=== PATIENT | female | born 1955 | race Caucasian/White ===

== ENCOUNTER → 2018-11-14 | Outpatient (CLI) | payer BC, OTHER ==
[~2018-11-14] MED LIST: ACHD5005 PO; AMOX-355 PO; LACT1CAP64 PO; MELO-195 PO; MULT-608 PO; OMEG-12 PO; OMEP40CA36 PO; OXYC-12 PO; PNT40TEC PO
--- NOTE | 2018-11-14 13:39 | Diagnostic Imaging Report ---
INDICATION: Routine screening. COMPARISON: 07/21/2015. TECHNIQUE: 2D and 3D bilateral screening mammography was performed with CAD. FINDINGS: Scattered fibroglandular densities are identified bilaterally. The parenchymal pattern is stable. The circumscribed nodular density in the medial right breast is stable. No spiculated mass or malignant appearing microcalcifications are seen. The axillae are unremarkable. IMPRESSION: No mammographic features suspicious for malignancy are identified. ACR BI-RADS Category 2: Benign findings. Result letter will be mailed to the patient. Note: At least 10% of breast cancer is not imaged by mammography. Dictated by: Dictated on workstation # [id number]
== END ==
LOC: RAD 09:42
PROVIDERS: ATTEND Family Medicine
DX: Z12.31 Encounter for screening mammogram for malignant neoplasm of breast (principal)
CPT/HCPCS: 77067

== ENCOUNTER → 2020-12-08 | Outpatient (CLI) | payer BC, OTHER ==
--- NOTE | 2020-12-08 13:48 | Diagnostic Imaging Report ---
INDICATION: Routine screening. COMPARISON: 11/14/2018 and 07/21/2015. TECHNIQUE: 2D and 3D bilateral screening mammography was performed with CAD. FINDINGS: Scattered fibroglandular densities are identified bilaterally. The parenchymal pattern is stable. The benign nodule in the medial right breast is stable. No spiculated mass or malignant-appearing microcalcifications are seen. The axillae are unremarkable. IMPRESSION: No mammographic features suspicious for malignancy are identified. ACR BI-RADS Category 2: Benign findings. Result letter will be mailed to the patient. Note: At least 10% of breast cancer is not imaged by mammography. Dictated by: Dictated on workstation # [id number]
== END ==
LOC: RAD 08:30
PROVIDERS: ATTEND Family Medicine
DX: Z12.31 Encounter for screening mammogram for malignant neoplasm of breast (principal)
CPT/HCPCS: 77063; 77067

== ENCOUNTER 2021-09-16 20:12 | Emergency (ER) | payer MEDICARE, OTHER ==
[~2021-09-16] VITALS: Ht 165.1 cm; Wt 72.6 kg
[2021-09-16] MEDS ORDERED: HYDROcodone/APAP 5 MG/325 MG (LORTAB) TAB PO ONE (20:30)
--- NOTE | 2021-09-16 20:30 | ED Upper Extremity ---
General Stated Complaint: FALL, RIGHT SHOULDER PAIN Source: patient History of Present Illness Date Seen by Provider: September 16, 2021 Time Seen by Provider: 20:28 Initial Comments Patient is a 66-year-old female who presents to the ED with right shoulder pain. Fell about 30 minutes ago. She states she was taking out the trash when she slipped on some loose concrete landing directly on her right shoulder. Had immediate pain. Pain is relieved when she keeps her arm still with any type of movement she noticed significant pain. No obvious bone deformity swelling bruising. Denies hitting her head loss of conscious, neck pain, chest pain. Denies taking thing for pain. She did drink a few alcoholic beverages right before arrival. Allergies and Home Medications Allergies Coded Allergies: No Known Drug Allergies (Unverified , 09/17/12) Patient Home Medication List Home Medication List Reviewed: Yes Amoxicillin/Clavulanate K (Augmentin 500-125 Tablet) 1 Each Tablet, 1 EACH PO BID, (Reported) Entered as Reported by: SIRIA RODRIGUEZ on 08/22/13 1005 Hydrocodone Bit/Acetaminophen (Lortab 5 Mg Tablet) 1 Each Tablet, 1-2 EACH PO Q4H PRN for PAIN, (Reported) Entered as Reported by: SIRIA RODRIGUEZ on 08/22/13 1005 Hydrocodone/Acetaminophen (Hydrocodone-Acetamin 5-325 mg) 5 Mg-325 Mg Tablet, 1 TAB PO Q4H PRN for PAIN-MODERATE (5-7) Prescribed by: BRITTON TRIVEDI on 09/16/214 Lactobacillus Combo No.11 (Probiotic) 1 Each Cap.sprink, 1 TAB PO DAILY, (Reported) Entered as Reported by: OSCAR BYRD on 08/15/13 1529 Meloxicam (Meloxicam) 15 Mg Tablet, 15 MG PO DAILY, (Reported) Entered as Reported by: OSCAR BYRD on 08/15/13 1529 Multivitamins (Multiple Vitamin) 1 Tab Tablet, 1 TAB PO DAILY, (Reported) Entered as Reported by: VITOR CRUZ on 09/17/12 1247 [place]-3/Dha/Epa/Fish Oil (Fish Oil 1,000 Mg Ec Softgel) 1 Each Capsule.dr, 1,000 MG PO DAILY, (Reported) Entered as Reported by: OSCAR BYRD on 08/15/131528 Pantoprazole Sodium (Protonix) 40 Mg Tablet.dr, 40 MG PO DAILY, (Reported) Entered as Reported by: OSCAR BYRD on 08/15/131528 Review of Systems Constitutional: No chills, No diaphoresis, No malaise, No weakness EENTM: No hearing loss, No blurred vision, No double vision Respiratory: No cough, No dyspnea on exertion, No orthopnea, No short of breath, No wheezing Cardiovascular: No chest pain Gastrointestinal: No abdominal pain, No diarrhea, No nausea, No vomiting Genitourinary: No decreased output, No discharge Musculoskeletal: No back pain; joint pain, muscle pain Skin: No change in color, No change in hair/nails All Other Systems Reviewed Negative Unless Noted: Yes Past Rktjiag-Pwrecr-Jrvhzh Hx Past Medical History Reproductive Disorders: No Arthritis Physical Exam Vital Signs Vital Signs - First Documented 09/16/21 09/16/21 20:22 21:26 Temp 36.6 Pulse 75 Resp 19 B/P (MAP) 177/78 (111) Pulse Ox 98 O2 Delivery Room Air Capillary Refill : Height, Weight, BMI Height: 5'5.00" Weight: 175lbs. oz. 79.439264lw; BMI Method:Stated General Appearance: WD/WN, no apparent distress HEENT: PERRL/EOMI, normal ENT inspection, TMs normal, pharynx normal Neck: non-tender, full range of motion, supple, normal inspection Cardiovascular: regular rate, rhythm, no edema, no gallop, no JVD Respiratory: chest non-tender, lungs clear, normal breath sounds Gastrointestinal: normal bowel sounds, non tender, soft, no organomegaly Back: normal inspection, no CVA tenderness, no vertebral tenderness Shoulder: bone tenderness (Right anterior shoulder tenderness. Limited passive range of motion of. 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 Patient airway maintained patent. No evidence of respiratory distress. Successful reduction Re-examination Time: 21:41 (Patient alert and orient x3. No concerns. Pain improved.) Splinting and Joint Reduction : Location: right shoulder Pre-Proc Neuro Vasc Exam: normal Post-Proc Neuro Vasc Exam: normal Joint Reduction Site: shoulder (R) Reduction Attempts: 1 Pre-Procedure NV Exam: Yes post joint reduction film: joint reduced Progress Patient was placed in a shoulder immobilizer Neri wrap: No Immobilizers: Large Shoulder Progress/Results/Core Measures Results/Orders My Orders Orders - SARAI REY Hydrocodone/Apap 5/325 Tablet (Lortab 5 (09/16/21 20:30) Shoulder, Right, 2 Views (09/16/21 ) Etomidate Injection (Amidate Injection) (09/16/21 21:15) Hydrocodone/Apap 5/325 Tablet (Lortab 5 (09/16/21 20:34) Rx-Hydrocodone/Apap 5-325 Mg (Rx-Vicodin (09/16/21 21:45) Fentanyl Inj (Sublimaze Injection) (09/16/21 21:42) Medications Given in ED Current Medications Medications Dose Ordered Sig/Eri Route Start Time Stop Time Status Last Admin Dose Admin Acetaminophen/ Hydrocodone Bitart 1 ea ONCE ONCE PO 09/16/21 20:30 09/16/21 21:18 DC 09/16/21 20:35 1 EA Acetaminophen/ Hydrocodone Bitart 1 ea ONCE ONCE PO 09/16/21 21:45 09/16/21 21:46 DC 09/16/21 21:52 1 EA Etomidate 15 mg ONCE ONCE IV 09/16/21 21:15 09/16/21 21:16 DC 09/16/21 21:26 10 MG Vital Signs/I&O 09/16/21 09/16/21 09/16/21 09/16/21 20:22 21:26 21:29 21:35 Temp 36.6 Pulse 75 71 77 72 Resp 19 16 16 16 B/P (MAP) 177/78 (111) 179/89 189/99 175/88 Pulse Ox 98 98 95 O2 Delivery Room Air Room Air Room Air Room Air Departure Communication (PCP) Patient presents ED with right shoulder pain. Fell right before arrival. X-ray initially showed right anterior shoulder dislocation. No obvious acute fracture. She is neurovascular intact. Denies any her head or loss conscious. Discussed procedural sedation to help reduce the right shoulder. Discussed the risk and benefits of procedural sedation and reduction of the shoulder. She agrees with procedure. ASA score of 2. No recent upper respiratory infection. Denies snoring. Stable vital signs. Etomidate 10 mg was used with successful reduction of the right shoulder. Patient was placed in a shoulder immobilizer. Procedure documented note. Patient was observed here in the ED for a hour without any evidence of decline. Patient was given dose of pain medication. Patient will be discharged with pain medication. Patient will follow up with orthopedic outpatient. Recommend keeping the right arm in a sling. Return pr ecautions were discussed with patient Impression Primary Impression: Anterior dislocation of right shoulder Disposition: 01 HOME, SELF-CARE Condition: Stable Departure-Patient Inst. Decision time for Depature: 21:13 Referrals: DARWIN COBB DO (PCP) Primary Care Physician KI DING MD Patient Instructions: Procedural Sedation, Adult ED, Shoulder Dislocation (DC) Scripts Hydrocodone/Acetaminophen (Hydrocodone-Acetamin 5-325 mg) 5 Mg-325 Mg Tablet 1 TAB PO Q4H PRN for PAIN-MODERATE (5-7), #12 TAB Prov: SARAI REY 09/16/21 SARAI REY September 16, 2021 20:30
[2021-09-16] MEDS ORDERED: HYDROcodone/APAP 5 MG/325 MG (LORTAB) TAB ONE (20:34)
--- NOTE | 2021-09-16 21:08 | Diagnostic Imaging Report ---
EXAMINATION: Right shoulder radiographs, 2 views. COMPARISON: None. HISTORY: 66-year-old female, fall. Right shoulder pain. FINDINGS: The humeral head is anteriorly dislocated relative to the glenoid. There is no radiographically apparent fracture. There are mild acromioclavicular degenerative changes without large undersurface osteophyte. The acromioclavicular joint is normally aligned. IMPRESSION: 1. The humeral head is anteriorly dislocated. 2. No identified acute fracture. Dictated by: Dictated on workstation # [id number]
[2021-09-16] MEDS ORDERED: ACHD5005 PO (21:14)
[2021-09-16] MEDS ORDERED: ETOMIDATE IV SOLN 20 MG/10 ML VIAL IV ONE (21:15)
[2021-09-16] MEDS ORDERED: fentaNYL INJ 100 MCG/2 ML AMP IVP STA (21:42)
--- NOTE | 2021-09-16 22:01 | Diagnostic Imaging Report ---
EXAMINATION: Right shoulder, single view. COMPARISON: Right shoulder radiographs September 16, 2021 at 2049 hours. HISTORY: 66-year-old female, reduction of glenohumeral dislocation. FINDINGS: There is notable limitations of the study given difficulties with patient positioning. The humeral head is not obviously dislocated currently. There is no radiographically visible fracture. IMPRESSION: 1. Limited exam relating to difficulties with patient positioning. 2. Humeral head is not obviously currently dislocated. Correlation with physical exam or more optimally performed with scapular Y or axillary view is recommended. Dictated by: Dictated on workstation # [id number]
[2021-09-16 22:35] VITALS: BP 154/81
== END 2021-09-16 22:44 | disposition home or self-care (01) ==
LOC: EDUNIT# 20:12 → ER 20:14
DX: S43.004A Unspecified dislocation of right shoulder joint, initial encounter (principal); W01.0XXA Fall on same level from slipping, tripping and stumbling without subsequent striking against object, initial encounter
CPT/HCPCS: 73020; 73030; 93041